=== PATIENT | female | born 1975 | race Caucasian/White ===

== ENCOUNTER 2020-02-26 11:27 | Emergency (ER) | payer MEDICAID ==
[~2020-02-26] VITALS: Ht 154.9 cm; Wt 60.8 kg
[2020-02-26 12:30] LABS: BASOPHIL % 0.6 % (0-2); PLATELET COUNT 353 x10^3mcL (130-400); RED CELL DISTRIBUTION WIDTH 13.7 % (11.5-14.5)
[2020-02-26 12:34] LABS: CALCIUM 8.8 mg/dL (8.5-10.1); CHLORIDE SERUM 107 mmol/L (98-107); CREATININE SERUM 0.8 mg/dL (0.6-1.0); GFR1 > 60 mL/min; GLUCOSE SERUM 106 mg/dL (74-106); POTASSIUM SERUM 3.4 mmol/L (3.5-5.1); SODIUM SERUM 141 mmol/L (136-145)
[2020-02-26 12:40] LABS: ALBUMIN 3.7 g/dL (3.4-5.0); ALKALINE PHOSPHATASE 83 U/L (46-116); ALT/SGPT 28 U/L (14-59); AST/SGOT 29 U/L (15-37); BILIRUBIN TOTAL 0.2 mg/dL (0.20-1.00); TOTAL PROTEIN, SERUM 7.4 g/dL (6.4-8.2)
[2020-02-26 13:15] LABS: microscopic required? NO
[2020-02-26 13:20] LABS: urine erythrocyte NEGATIVE (NEGATIVE)
[2020-02-26 14:17] VITALS: BP 113/72
== END 2020-02-26 14:17 | disposition home or self-care (01) ==
LOC: ED 11:27
PROVIDERS: Emergency Medicine
DX: F41.9 Anxiety disorder, unspecified (principal); R20.2 Paresthesia of skin; J45.909 Unspecified asthma, uncomplicated; G43.909 Migraine, unspecified, not intractable, without status migrainosus; Z88.1 Allergy status to other antibiotic agents; Z88.2 Allergy status to sulfonamides
CPT/HCPCS: J7030

== ENCOUNTER 2020-04-06 08:40 | Emergency (ER) | payer MEDICAID ==
[~2020-04-06] VITALS: Ht 154.9 cm; Wt 63.0 kg
[2020-04-06 08:47] VITALS: Ht 154.9 cm; Wt 63.0 kg
[2020-04-06 13:27] VITALS: BP 109/75
== END 2020-04-06 13:27 | disposition home or self-care (01) ==
LOC: ED 08:40
DX: J45.901 Unspecified asthma with (acute) exacerbation (principal); G43.909 Migraine, unspecified, not intractable, without status migrainosus; Z88.1 Allergy status to other antibiotic agents; Z88.2 Allergy status to sulfonamides
CPT/HCPCS: J0456; J2930; J7050; J7613; Q0092

== ENCOUNTER 2020-08-11 13:54 | Emergency (ER) | payer MEDICAID ==
[~2020-08-11] VITALS: Ht 154.9 cm; Wt 63.0 kg
[2020-08-11 14:05] VITALS: Ht 154.9 cm; Wt 63.0 kg
[2020-08-11 14:37] LABS: microscopic required? NO
[2020-08-11 14:43] LABS: BASOPHIL % 1.3 % (0.2-1.3); PLATELET COUNT 356 x10^3mcL (179-408); RED CELL DISTRIBUTION WIDTH 13.8 % (12.3-17.7)
[2020-08-11 14:44] LABS: UA SPECIFIC GRAVITY 1.015 (1.005-1.035); urine erythrocyte NEGATIVE (NEGATIVE)
[2020-08-11 15:01] LABS: CALCIUM 8.8 mg/dL (8.5-10.1); CARBON DIOXIDE 28.1 mmol/L (21-32); CHLORIDE SERUM 107 mmol/L (98-107); CREATININE SERUM 0.6 mg/dL (0.6-1.0); GFR1 > 60 mL/min; GLUCOSE SERUM 110 mg/dL (74-106); POTASSIUM SERUM 3.9 mmol/L (3.5-5.1); SODIUM SERUM 143 mmol/L (136-145)
[2020-08-11 15:05] LABS: ALBUMIN 3.6 g/dL (3.4-5.0); ALKALINE PHOSPHATASE 81 U/L (46-116); ALT/SGPT 22 U/L (14-59); AST/SGOT 16 U/L (15-37); BILIRUBIN TOTAL 0.1 mg/dL (0.20-1.00); LIPASE 179 IU/L (73-393)
[2020-08-11] MEDS ORDERED: BACLOFEN10 MG PO (15:59)
[2020-08-11] MEDS ORDERED: IBU600 M2 PO (15:59)
[2020-08-11 16:25] VITALS: BP 123/71
== END 2020-08-11 16:25 | disposition home or self-care (01) ==
LOC: ED 13:54
PROVIDERS: Emergency Medicine
DX: R10.813 Right lower quadrant abdominal tenderness (principal); R10.814 Left lower quadrant abdominal tenderness; M54.5 Low back pain; J45.909 Unspecified asthma, uncomplicated; G43.909 Migraine, unspecified, not intractable, without status migrainosus; Z88.1 Allergy status to other antibiotic agents; Z88.2 Allergy status to sulfonamides